=== PATIENT | male | born 1985 | race Two or more races ===

== ENCOUNTER 2017-04-24 09:17 | Day surgery (SDC) | payer OTHER ==
[~2017-04-24] VITALS: Ht 175.3 cm; Wt 79.8 kg
[~2017-04-24 09:17] MED LIST: ACET325 PO; ALBU90OI INH; ALBU90OI6; ALBU90OI6 INH; ALPR.5 PO; ALPR1 PO; AMPDEX30CR PO; Adderall 30 MG30 MG; Amphetamine Sal15 MG PO; BUPR75; BUPRENORPHIN-N1 EACH; CIPR500 PO; CODGUAEL PO; CYCL10 PO; DIAZ5 PO; DULERA 200 MCG/13 GM IH; DULO60 PO; EPIN.3I IM; EPIPEN 2-P0.3 MG/0.3; FAMO20 PO; FLUSAL2505 INH; Flonase 0.05% N16 GM; HYDACE5 PO; HYDMOR4 PO; HYDPAM25; IBUP200; IBUP800 PO; KETO10 PO; LORA.5 PO; Lithium Carbon600 MG PO; META800 PO; METO10 PO; METO25; METO25ER PO; MONT10T PO; NAPR500 PO; Nasonex17 GM; OMEP20ER PO; ONDA4ODT MM; OXYACE5T PO; OXYC15ER PO; PANT40; PANT40 PO; PENVK500 PO; PHENY100ER PO; PREG50 PO; PROACE100 PO; PROM25 PO; Pepcid20 MG PO; Prednisone20 MG PO; RXCYCL10 PO; RXHYDACE PO; SPACE CHAMBER1 EACH MC; TRAACE PO; TRAM50 PO; TUSSIN COUGH PO
[2018-01-05] MEDS ORDERED: BUPRENORPHN-NA1 EACH SL (13:54)
[2018-01-05] MEDS ORDERED: IBUP400 PO (15:56)
== END 2017-04-24 11:20 | disposition home or self-care (01) ==
LOC: ORSCSDS 09:17
PROVIDERS: Internal Medicine Gastroenterology
PROC: 0DB58ZX Excision of Esophagus, Via Natural or Artificial Opening Endoscopic, Diagnostic (ICD-10-PCS; principal; 2017-04-24 10:45)
DX: R13.10 Dysphagia, unspecified (principal); K29.70 Gastritis, unspecified, without bleeding; K20.0 Eosinophilic esophagitis; K21.9 Gastro-esophageal reflux disease without esophagitis; I10 Essential (primary) hypertension; J44.9 Chronic obstructive pulmonary disease, unspecified; Z79.899 Other long term (current) drug therapy
CPT/HCPCS: 88305; J2250; J7120

== ENCOUNTER 2017-08-15 20:28 | Emergency (ER) | payer OTHER ==
[~2017-08-15] VITALS: Ht 175.3 cm; Wt 83.9 kg
[2017-08-15] MEDS ORDERED: Bupropion Xl150 MG PO (22:35)
[2017-08-15] MEDS ORDERED: CLON.1 PO (22:36)
[2017-08-15] MEDS ORDERED: Keflex500 MG PO (22:52)
== END 2017-08-15 22:58 | disposition home or self-care (01) ==
LOC: ER 20:28
DX: I80.8 Phlebitis and thrombophlebitis of other sites (principal); F19.10 Other psychoactive substance abuse, uncomplicated; Z88.8 Allergy status to other drugs, medicaments and biological substances; Z91.018 Allergy to other foods; Z88.5 Allergy status to narcotic agent; Z91.010 Allergy to peanuts; Z79.899 Other long term (current) drug therapy; J45.909 Unspecified asthma, uncomplicated; F32.9 Major depressive disorder, single episode, unspecified; F41.9 Anxiety disorder, unspecified
CPT/HCPCS: 99282

== ENCOUNTER → 2018-01-08 | Outpatient (CLI) | payer OTHER ==
[~2018-01-08] MED LIST changes: +BUPRENORPHN-NA1 EACH SL; +Bupropion Xl150 MG PO; +CLON.1 PO; +IBUP400 PO; +Keflex500 MG PO
== END ==
LOC: LAB SRC 14:14 → LAB SHORT 14:14
DX: Z51.81 Encounter for therapeutic drug level monitoring (principal); F11.20 Opioid dependence, uncomplicated
CPT/HCPCS: G0480

== ENCOUNTER 2018-06-14 16:01 | Day surgery (SDC) | payer OTHER ==
--- NOTE | 2018-06-14 17:39 | NUR ---
PT HAS REPORTED TO THIS RN HE HAS HAD PAIN IN HEAD, ARMS AND LEGS FEEL WEEK "FOR THE PAST COUPLE DAYS". PT REPORTS HE HAS TOLD THE DENTIST/ THIS FROM LAST VISIT. PT VERBALIZES UNDERSTANDING THAT IF SYMPTOMS WORSEN TO SEEK MEDICAL ATTENTION. PT IS TO RETURN TO [facility] [place] THE [place]EXT 3 DA[place]. PT AMBULATORY WITH STEADY GAIT.
[2018-06-15] MEDS ORDERED: CLINDAMYCI900 MG/51 IV (08:39)
== END 2018-06-14 17:39 | disposition home or self-care (01) ==
LOC: ATC 16:01
DX: K04.7 Periapical abscess without sinus (principal); F17.220 Nicotine dependence, chewing tobacco, uncomplicated; Z88.8 Allergy status to other drugs, medicaments and biological substances
CPT/HCPCS: 96365

== ENCOUNTER → 2018-09-24 | Outpatient (CLI) | payer OTHER ==
[~2018-09-24] MED LIST changes: +CLIN300; +CLINDAMYCI900 MG/51 IV
== END | disposition home or self-care (01) ==
LOC: LAB EV 15:28 → LAB SHORT 15:28
DX: R53.83 Other fatigue (principal)
CPT/HCPCS: 87040

== ENCOUNTER 2020-03-20 10:45 | Emergency (ER) | payer OTHER ==
[~2020-03-20] VITALS: Ht 175.3 cm; Wt 88.5 kg
[2020-03-20] MEDS ORDERED: OLAN5 PO ×2 (12:10→12:35)
[2020-03-21] MEDS ORDERED: RISP1 PO (13:41)
== END 2020-03-20 12:40 | disposition home or self-care (01) ==
LOC: ER 10:45
DX: R44.0 Auditory hallucinations (principal); F15.90 Other stimulant use, unspecified, uncomplicated; F17.220 Nicotine dependence, chewing tobacco, uncomplicated; Z88.6 Allergy status to analgesic agent; Z91.018 Allergy to other foods; Z88.5 Allergy status to narcotic agent; Z91.011 Allergy to milk products; Z88.8 Allergy status to other drugs, medicaments and biological substances
CPT/HCPCS: 99285; A9270

== ENCOUNTER 2020-03-21 08:49 | Emergency (ER) | payer OTHER ==
[~2020-03-21] VITALS: Ht 175.3 cm; Wt 88.5 kg
[~2020-03-21 08:49] MED LIST changes: +OLAN5 PO
[2020-03-21] MEDS ORDERED: RISP1 PO (13:41)
== END 2020-03-21 14:02 | disposition home or self-care (01) ==
LOC: ER 08:49
DX: F29 Unspecified psychosis not due to a substance or known physiological condition (principal); F15.10 Other stimulant abuse, uncomplicated
CPT/HCPCS: 99285; A9270

== ENCOUNTER 2020-04-11 08:52 | Emergency (ER) | payer OTHER ==
[~2020-04-11] VITALS: Ht 175.3 cm; Wt 88.5 kg
[~2020-04-11 08:52] MED LIST changes: +RISP1 PO
[2020-04-11] MEDS ORDERED: QUET25 PO (09:25)
[2020-04-11] MEDS ORDERED: BUPRENORPHIN-N1 EAC1 SL (09:26)
[2020-04-11 09:57] LABS: BASOPHILS ABSOLUTE AUTO 0.06 K/mm3 (0.00-0.23); BASOPHILS PERCENT AUTO 1 % (0-2); EOSINOPHILS ABSOLUTE AUTO 0.33 K/mm3 (0.00-0.68); EOSINOPHILS PERCENT AUTO 5 % (0-6); Hematocrit 42.2 % (37.0-53.0); Hemoglobin 13.7 g/dL (13.5-17.5); IMMATURE GRAN ABSOLUTE AUTO 0.02 K/mm3 (0.00-0.10); IMMATURE GRAN PERCENT AUTO 0 % (0-1); LYMPHOCYTES ABSOLUTE AUTO 2.33 K/mm3 (0.84-5.20); LYMPHOCYTES PERCENT AUTO 32 % (21-46); MONOCYTES ABSOLUTE AUTO 0.58 K/mm3 (0.16-1.47); MONOCYTES PERCENT AUTO 8 % (4-13); Mean Corpuscular HGB 26.2 pg (26.0-34.0); Mean Corpuscular HGB Conc 32.5 g/dL (31.5-36.5); Mean Corpuscular Volume 81 fL (80-100); Mean Platelet Volume 9.5 fL (9.1-12.4); NEUTROPHILS PERCENT AUTO 54 % (41-73); Platelet Count 430 K/mm3 (150-400); RDW Coefficient Variation 12.4 % (11.7-14.2); RDW Standard Deviation 36.1 fL (35.1-46.3); Red Blood Cell Count 5.22 M/mm3 (4.30-5.90); White Blood Cell Count 7.22 K/mm3 (4.00-11.30)
[2020-04-11 10:20] LABS: Ethanol (Alcohol), Blood, Med <3 mg/dL; Salicylate <1.7 mg/dL (2.8-20.0)
[2020-04-11 10:25] LABS: Acetaminophen, Random <2.0 ug/mL (10.0-30.0); Alanine Aminotransfer (ALT/SGP 28 U/L (12-78); Albumin, Blood 3.9 g/dL (3.4-5.0); Albumin/Globulin Ratio 0.9 (0.8-1.8); Alk Phos 68 U/L (50-136); Anion Gap 7 mmol/L (6-16); Aspartate Aminotrans (AST/SGOT 28 U/L (12-37); Bilirubin, Total 1.7 mg/dL (0.1-1.0); Blood Urea Nitrogen 16 mg/dL (8-24); Bun/Creatinine Ratio 15.5 (12.0-20.0); CO2, Blood 26 mmol/L (21-32); Calcium, Blood 9.3 mg/dL (8.5-10.1); Chloride, Blood 107 mmol/L (98-108); Creatinine, Blood 1.03 mg/dL (0.60-1.20); Globulin, Blood 4.4 g/dL (2.2-4.0); Glomerular Filtration Rate >60 (60-); Glucose, Blood 105 mg/dL (70-99); Potassium, Blood 3.7 mmol/L (3.5-5.5); Sodium, Blood 140 mmol/L (136-145); Total Protein, Blood 8.3 g/dL (6.4-8.2)
[2020-04-11 11:56] LABS: Source, Urine Clean Catch
[2020-04-11 11:59] LABS: Bilirubin, Urine Neg (Neg); Blood, Urine Neg (Neg); Glucose Qualitative, Urine Neg (Neg); Ketones, Urine 1+ (Neg); Leukocyte Esterase, Urine Neg (Neg); Nitrite, Urine Neg (Neg); Protein, Urine 1+ (Neg); Urobilinogen, Urine NORM (Normal)
[2020-04-11 12:09] LABS: Appearance, Urine Clear (Clear); Color, Urine Yellow (P-Yellow)
[2020-04-11 12:32] LABS: U Amphetamine Screen Not Detected; U Barbituate Screen Not Detected; U Benzodiazapine Screen Not Detected; U Buprenorphine Screen DETECTED; U Cannabinoids Screen Not Detected; U Cocaine Screen Not Detected; U Methadone Screen Not Detected; U Methamphetamine Screen DETECTED; U Opiates Screen DETECTED; U Oxycodone Screen Not Detected; U Phencyclidine Screen Not Detected; U Propoxyphene Screen Not Detected
[2020-04-11] MEDS ORDERED: QUET300 PO (20:14)
== END 2020-04-11 20:45 | disposition home or self-care (01) ==
LOC: ER 08:52
PROVIDERS: Physician Assistant
DX: R45.851 Suicidal ideations (principal); R44.0 Auditory hallucinations; F15.90 Other stimulant use, unspecified, uncomplicated; F11.90 Opioid use, unspecified, uncomplicated; F17.220 Nicotine dependence, chewing tobacco, uncomplicated; Z91.02 Food additives allergy status; Z91.018 Allergy to other foods; Z91.011 Allergy to milk products; Z88.8 Allergy status to other drugs, medicaments and biological substances
CPT/HCPCS: 80053; 85025; 99285; A9270; G0480; Q3014

== ENCOUNTER 2021-05-16 07:30 | Day surgery (SDC) | payer OTHER ==
[~2021-05-16] VITALS: Ht 175.3 cm; Wt 104.8 kg
[~2021-05-16 07:30] MED LIST changes: +BUPRENORPHIN-N1 EAC1 SL; +QUET25 PO; +QUET300 PO
[2021-05-16] MEDS ORDERED: ALBU2.5V5 (07:48)
[2021-05-16] MEDS ORDERED: LOSA25 (07:48)
[2021-05-16] MEDS ORDERED: GABA100 (07:48)
== END 2021-05-16 09:35 | disposition home or self-care (01) ==
LOC: ORSCSDS 07:30
PROVIDERS: Internal Medicine Gastroenterology
PROC: 0DB58ZX Excision of Esophagus, Via Natural or Artificial Opening Endoscopic, Diagnostic (ICD-10-PCS; principal; 2021-05-16 09:00)
PROC: 0D757ZZ Dilation of Esophagus, Via Natural or Artificial Opening (ICD-10-PCS; principal; 2021-05-16 09:00)
DX: K20.0 Eosinophilic esophagitis (principal); R13.14 Dysphagia, pharyngoesophageal phase; I10 Essential (primary) hypertension; K21.9 Gastro-esophageal reflux disease without esophagitis; J45.909 Unspecified asthma, uncomplicated; F41.8 Other specified anxiety disorders; F17.220 Nicotine dependence, chewing tobacco, uncomplicated; E66.9 Obesity, unspecified; Z68.34 Body mass index [BMI] 34.0-34.9, adult; Z79.899 Other long term (current) drug therapy
CPT/HCPCS: 88305; J2250; J2704